=== PATIENT | male | born 1965 | race African-American/Black ===

== ENCOUNTER 2017-01-06 01:33 | Emergency (ER) | payer MEDICAID ==
[~2017-01-06] VITALS: Ht 172.7 cm; Wt 106.6 kg
[~2017-01-06 01:33] MED LIST: AMOXICILLIN 50500 MG PO; AMOXIL500 MG PO; AUGMENTIN 875 M1 TAB PO; AUGMENTIN 875-1 EACH PO; CLARITIN-D1 T12 PO; HCTZ/LISINOPRIL1 TA3 PO; LISINOPRIL 10MG10 MG PO; LODRANE PO; MEDROL 4MG. DOSE4 MG PO; NAPROSYN500 M1 PO; PRILOSEC OTC20 MG PO; PROTONIX 40MG T40 MG PO; VENLAFAXINE HCL50 MG PO; XANAX1 MG PO; ZIAC 5 MG-6.251 TAB PO; ZOFRAN4 MG PO
--- NOTE | 2017-01-06 01:59 | Emergency Room Report ---
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 N Clinical Suspician of Infection? N Mental Status: 1 - Regular (Normal Baseline) Sepsis Risk:Low Sepsis Risk Have you (or family members/close friends) recently traveled outside the [place]? N If Yes, where/when: Have you had exposure to infectious disease within the past month? N TB? Other? Specify: Source patient, RN notes reviewed, family, old records Exam Limitations no limitations Comment upper abd pain with belching and nausea but no diarrhea and no melena over the last few days Cardiac Chest Pain Chest pain indicative of cardiac No Timing/Duration this evening Severity moderate ALLERGIES Coded Allergies: venom-honey bee (BEE VENOM (HONEY BEE)) (Intermediate, SWELLING TO THROAT ) Home Medications Reported Medications Alprazolam (Xanax) 1 MG PO BID OMEPRAZOLE MAGNESIUM (Prilosec OTC) 20 MG PO DAILY LORATADINE/PSEUDOEPHEDRINE (Claritin-D 12 Hour Tablet) 1 T12 PO PRN LISINOPRIL/HYDROCHLOROTHIAZIDE (Lisinopril-Hctz 20-12.5 MG Tab) 1 TAB PO DAILY #30 VENLAFAXINE HCL (Effexor 50MG (GEQ)) 50 MG PO DAILY History Medical History General CAD? No Angina: No RI: No Hypertension? Yes Hyperlipidemia? No CHF? No DVT? No PE? No COPD? No Asthma? No Anemia? No GERD? No Gastric ulcers? No GI Bleed? No Hernia? No Thyroid Problems? No Hypothyroidism? No CVA? No Seizures? No Diabetes? No Renal Insuffiency? No End Stage Renal Disease? No UTI? No Stones? No BPH? No GB Disease: No Nephritic Syndrome? No Asplenia? No Hepatitis? No Sickle Cell Disease? No Arthritis? No Migraines? No Cataracts? No Glaucoma? No MRSA? No HIV? No TB? No Anxiety? Yes Depression? Yes Cancer? No More? No Immunization Hx DT/Tetanus 5-10 Years Ago Surgical Hx Previous Surgery?Y Plastic RIGHT ANKLE Family History Family Hx Diabetes Yes CAD Yes Hypertension Yes Hyperlipidemia Yes Cancer No TB No Social History Smoking Hx Smoker: Never Smoker Tobacco: No Packs/day N/A Alcohol Alcohol: No Drugs none Review of Systems All Other Systems Reviewed and Negative Constitutional denies fever Eyes denies drainage ENT denies: ear discharge, epistaxis, throat pain. Respiratory denies cough, denies shortness of breath, denies wheezing Cardiovascular denies chest pain, denies palpitations, denies syncope Gastrointestinal see HPI, abdominal pain, diarrhea, nausea, vomiting Genitourinary denies: dysuria, frequency, hesitancy, hematuria. Musculoskeletal denies back pain, denies joint pain, denies joint swelling, denies neck pain Skin denies rash Psychiatric/Neurological denies headache, denies seizure Physical Exam Vital Signs Vital Signs Date Time Temp Pulse Resp B/P Pulse O2 O2 Flow FiO2 Ox Delivery Rate 01/06 0143 97.9 75 20 144/98 100 - WBC >12,000 or <4,000 or 10% bands? 2 or more SIRS Criteria Met? B/P:144/98 MAP:113 Creatinine >2.0? UA output<0.5ml/kg/hr for 2 hrs? Platelet count >100,000? Lactate >2.0mmol/1? INR >1.2 or PTT > than 60 sec? Evidence of Organ Dysfunction? Provider documented clinical suspician of infection? N Sepsis Criteria Count: 1 Sepsis Risk: Low Sepsis Risk General Appearance no apparent distress Eye Exam - bilateral eye PERRL, bilateral eye EOMI Ear, Nose, Throat normal ENT inspection Neck supple Respiratory Status No: respiratory distress. Lung Sounds bilateral: lungs clear. 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 No Results/Orders Laboratory Tests 01/06/17 0230: Sodium 136, Potassium 3.4 L, Chloride 102, Carbon Dioxide 27, BUN 10, Creatinine 1.0, Estimated Creat Clear 135, Estimated GFR (MDRD) 79, Glucose 97, Calcium 8.9, Total Bilirubin 0.2, AST 32, ALT 46, Alkaline Phosphatase 61, Creatine Kinase 863 H, CK-MB (CK-2) Rel Index 0.6, CK and CKMB Interp 5.5 H, Troponin I < 0.02, Total Protein 8.4 H, Albumin 3.6, Globulin 4.8 H, Albumin/ Globulin Ratio 0.8 L, Amylase 66, Lipase 146, WBC 7.0, RBC 5.08, Hgb 14.3, Hct 44.0, MCV 86.7, RDW 12.8, Plt Count 353, MPV 8.0, Gran % 51.8, Gran # 3.6, Lymphocytes % 36.0, Monocytes % 7.2, Eosinophils % 4.3, Basophils % 0.7, Lymphocytes # 2.5, Monocytes # 0.5, Eosinophils # 0.3, Basophils # 0.1, PUBS MCHC 32.6, MCH 28.2 01/06/17 0155: Urine Color YELLOW, Urine Appearance CLEAR, Urine pH 6.0, Ur Specific Cheriton 1.020, Urine Protein NEGATIVE, Urine Ketones NEGATIVE, Urine Blood 2+ H, Urine Nitrate NEGATIVE, Urine Bilirubin NEGATIVE, Urine Urobilinogen 0.2, Ur Leukocyte Esterase NEGATIVE, Urine RBC 5-10, Urine WBC OCC, Ur Squamous Epith Cells 3-5, Amorphous Sediment TRACE, Urine Glucose NEGATIVE Current Medication Orders Sig/Peña Start time Last Medication Dose Route Stop Time Status Admin Sodium Chloride 1,000 ML .STK-MED ONE 01/06 226 DC IV Sodium Chloride 10 ML PRN PRN 01/06 145 AC IV 01/07 141 Sodium Chloride 1,000 ML .Q4H 01/06 145 AC IV 01/07 544 Sodium Chloride 10 ML PRN PRN 01/06 145 AC IV 01/07 142 Orders Procedure Date/time Status DIET-NOTHING BY MOUTH 01/[address] ABD & PELVIS W/O CONTRAST 01/[address] SCAN REQ 01/06 142 Active IV SALINE LOCK 01/06 142 Active URINALYSIS/COMPLETE 01/06 142 Complete LIPASE 01/06 142 Complete DIARRHEA PANEL, PCR 01/06 142 Active COMPLETE METABOLIC PANEL 01/06 142 Complete CBC WITH AUTO DIFF 01/06 142 Complete CARDIAC ENZYMES 01/06 142 Complete AMYLASE 01/06 142 Complete XRAY/CT/US XRAY/CT/US CT abdomen, pelvis CT interpretation by discussed w/radiologist Time results known: 0252 CT Results normal/NAD Departure Departure Time of Disposition 315 Disposition DC Home or Self Care(routine) Clinical Impression Primary Impression: Abdominal pain Qualifiers: Abdominal location: unspecified location Qualified Code: R10.9 - Unspecified abdominal pain Condition STABLE Referrals Anthony Manrique MD (Family) Patient Instructions DI for Nausea -- Adult Additional Instructions call pcp for follow up and more testing Discharge Counseling Counseled pt/family regarding diagnosis, test results, medications/RX, follow up needs ED Critical Care Critical Care No at 0316
[2017-01-06 02:08] LABS: URINE BILIRUBIN - DIPSTICK NEGATIVE (NEG); URINE BLOOD 2+ (NEG)
[2017-01-06 02:42] LABS: HEMOGLOBIN 14.3 g/dL (14.1-18.0); LYMPH # 2.5 K/mm3 (0.7-4.5)
[2017-01-06 02:59] LABS: BUN 10 mg/dL (7-18); GFR (ESTIMATED) 79 ML/MIN (>60)
[2017-01-06 03:37] VITALS: BP 144/98
--- NOTE | 2017-01-06 08:55 | RADIOLOGY REPORT PS360 ---
CT ABD PELVIS W/O CONTRAST CLINICAL INDICATION: Upper abdominal pain ABD PAIN ORDERING PHYSICIAN: Pepe Sauceda MD PATIENT AGE: 51 years COMPARISON: None TECHNIQUE: Axial images obtained with sagittal and coronal reformats. PROCEDURE: Oral Contrast: None IV Contrast: None . FINDINGS: There is faint groundglass attenuation in the right upper lobe inferiorly consistent with pneumonia. No effusions. Small hiatal hernia. There is mild diffuse fatty liver infiltration. The gallbladder, spleen, adrenal glands, and pancreas have an unremarkable unenhanced appearance. No hydronephrosis or obstructing renal or ureteral calculus. Scattered small lymph nodes are present in the mesentery's and right lower quadrant which are nonspecific. There is a small umbilical hernia containing fat. No intestinal obstruction or free air is evident. Unremarkable appendix. There is mild diffuse colonic diverticulosis. No evidence of diverticulitis. Again changes are present in the lower thoracic spine. No acute bony anomalies evident. IMPRESSION: 1. No acute intra-abdominal or pelvic pathology. 2. Faint groundglass opacity of the right upper lobe which may represent underlying pneumonia
--- OUTSIDE RECORDS SUMMARY | 2017-01-11 00:49 | External Medical Summary Rpt | CCD ---
Author Author , BONIFACIO Organization BONIFACIO Address Unknown Phone [email or web address] Providers Care Gifted Teacher Name Role Phone BESSON, BESSON Unavailable Unavailable BESSON RICHELLE, BESSON Unavailable Unavailable RICHELLE MALDONADO, MALDONADO Unavailable Unavailable [facility] Unavailable Unavailable [place], [facility] ZEE LIRA, PANKAJ Unavailable Unavailable PANKAJ ALY, Unavailable Unavailable PANKAJ RIVKA MALIK Unavailable Unavailable [facility] Un[facility] Un[facility], [facility], Unavailable Unavailable [facility] Unavailable Unavailable [facility], [facility] Unavailable Unavailable [facility], [facility] Pepe Tineo MD, Unavailable Unavailable Pepe [facility], Unavailable Unavailable [facility], [facility] RENUSCH KASSIDY, RENUSCH Unavailable Unavailable KASSIDY SCHULSTAD CAM, Unavailable Unavailable [facility]UL[facility] SCIFRES ANG, SCIFRES Unavailable Unavailable ANG SCIFRES ANG, SCIFRES Unavailable Unavailable ANG Purpose Continuity of Care Document - 08-16-2012 through 2016 Problems Code Diagnosis DOS Provider Status R509 FEVER 11-07-2016 [facility]PECIF[facility] E785 HYPERLIPIDE 08-16-2016 [facility] LIDIA [facility] UNSPECIFIED [facility] MED G4709 OTHER 08-16-2016 [facility] INSOMNIA [facility] I10 ESSENTIAL 08-16-2016 [facility] PRIMARY [facility] HYPERTENSIO INTERNAL N MED J3089 OTHER 08-16-2016 [facility] ALLERGIC [facility] RHINITIS INTER[facility] MED R3915 URGENCY OF 04-25-2016 [facility] [id number] ADVERSE 04-25-2016 [facility]ECT [facility] SEROTONIN NRI INIT ENC [id number] ADVERS EFF 04-25-2016 [facility] ANTIEMETIC RX INIT ENC R0609 OTHER FORMS 01-25-2016 [facility]SP[facility]A [facility] R1084 GENERALIZED 11-20-2015 [facility] R109 UNSPECIFIED 11-20-2015 [place] [facility] R197 DIARRHEA 11-20-2015 [facility]PEC[facility] J0190 ACUTE 11-13-2015 [facility] SINUSITIS [facility], UNSPECIFIED [facility] R0602 SHORTNESS 09-30-2015 [place] [facility] 4019 UNSPECIFIED 12-23-2014 [facility] ESSENTIAL [facility] HYPERTENSI[facility] INTERNAL N MED 2724 OTHER AND 12-09-2014 [facility] UNSPECIFIED [facility] INTER[facility] HYPERLIPIDE MED LIDIA 57101 OTHER 12-09-2014 [facility] FATIGUE INTER[facility] MED 57828 ESOPHAGEAL 09-05-2014 [facility] REFLUX [facility] 5780 HEMATEMESIS 06-09-2014 [facility] 7871 HEARTBURN 06-09-2014 [facility] 07783 DIARRHEA 06-01-2014 [facility] 94499 ACUTE 05-31-2014 [facility] HEMORRHAGE 78920 OTHER 10-21-2013 SCIFRES ANG CHRONIC ALLERGIC CONJUNCTIVI TIS 300.00 300.00 08-16-2012 [facility] Allergies, Adverse Reactions, Alerts Type Allergy to substance Drug Allergy Adverse Reaction to Substance Substance Reaction Severity INGREDIENT: NO KNOWN Unknown Unknown - NO KNOWN DRUG ALLERGY Bee Venom [id number]/THROAT Severe Clinical Alert Notifications Alert Diabetes: no A1C in the last 6 months Diabetes: no eye exam in the last 365 days Diabetes: no influenza vaccine in the last 365 days Medications Na ND Rx Da Fi Fi Am Da Di Ph RX Ph St me C No te ll ll ou ys ag ar # ys at s nt no ma ic us Or Da si cy ia de te s n re d AL 00 09 10 60 30 00 [place] Ac IA 22 -1 -0 .0 00 L- ti AZ 82 1- 6- 00 04 MA ve OL 03 20 20 53 RT AM 15 17 17 20 1 0 56 PH AR MG MA CY TA BL #5 ET 91 LO 00 09 09 30 30 00 [place] Ac RA 90 -0 -2 .0 00 L- ti TA 45 2- 9- 00 08 MA ve DI 83 20 20 83 RT NE 34 17 17 95 -D 8 44 PH AR 24 MA HR CY TA #5 BL 91 ET LO 00 09 09 30 30 00 [place] Ac RA 78 -0 -2 .0 00 L- ti TA 15 2- 9- 00 08 MA ve DI 07 20 20 83 RT NE 70 17 17 95 1 43 PH 10 AR MA MG CY TA #5 BL 91 ET OM 45 09 30 30 00 [place] Ac EP 80 -0 -2 .0 00 L- ti RA 20 2- 9- 08 MA ve ZO 88 20 20 84 RT LE 83 17 [address] AR MA 20 CY MG #5 91 TA BL ET LI 68 08 12 28 30 00 [place] Ac SI 64 -2 -2 .0 00 L- ti NO 50 7- 2- 00 07 MA ve IA 55 20 20 48 RT [place] 75 17 17 90 -H [address] AR Z MA 20 CY -1 2. #5 5 91 MG TA B AL 00 11 07 59 30 00 [place] Ac IA 22 -1 -0 .0 00 L- ti AZ 82 1- 8- 00 04 MA ve OL 03 20 20 53 RT AM 15 17 17 15 1 0 84 PH AR MG MA CY TA BL #5 ET 91 LI 68 07 11 27 30 [place] Ac SI 64 -2 -2 .0 00 L- ti NO 50 7- 5- 00 07 MA ve IA 55 20 20 48 RT [place] 75 17 17 90 -H [address] AR Z MA 20 CY -1 2. #5 5 91 MG TA B OM 45 10 05 29 30 00 [place] Ac EP 80 -3 -2 .0 00 L- ti RA 20 0- 5- 00 08 MA ve ZO 88 20 20 84 RT LE 83 17 [address] AR MA 20 CY MG #5 91 TA BL ET LO 00 10 05 30 30 [place] Ac RA 78 -2 -1 .0 00 L- ti TA 15 2- 8- 00 08 MA ve DI 07 20 20 83 RT NE 70 17 17 95 1 43 PH 10 AR MA MG CY TA #5 BL 91 ET LO 00 08 30 30 00 [place] Ac RA 90 -1 -1 .0 00 L- ti TA 45 9- 1- 00 08 MA ve DI 83 20 20 83 RT NE 34 17 17 95 -D 8 44 PH AR 24 MA HR CY TA #5 BL 91 ET AL 00 07 08 60 30 00 [place] Ac IA 22 -1 -0 .0 00 L- ti AZ 82 1- 4- 00 04 MA ve OL 03 20 20 53 RT AM 15 17 17 09 1 0 92 PH AR MG MA CY TA BL #5 ET 91 LI 68 06 30 30 00 [place] Ac SI 64 -2 -2 .0 00 L- ti NO 50 6- 1- 00 07 MA ve IA 55 20 20 48 RT IL 75 17 17 90 -H [address] AR Z MA 20 CY -1 2. #5 5 91 MG TA B AL 00 06 07 60 30 00 [place] Ac IA 22 -0 -0 .0 00 L- ti AZ 82 8- 7- 00 04 MA ve OL 03 20 20 53 RT AM 15 17 17 05 1 0 86 PH AR MG MA CY TA BL #5 ET 91 ES 68 05 30 30 00 [place] Ac CI 64 -2 -2 .0 00 L- ti TA 50 5- 3- 00 07 MA ve LO 51 20 20 49 RT IA 95 17 17 00 AM 4 44 PH AR 10 MA CY MG #5 TA 91 BL ET LI 54 05 30 30 00 [place] Ac SI 45 -2 -1 .0 00 L- ti NO 80 2- 6- 00 07 MA ve IA 99 20 20 48 RT IL 21 17 17 90 -H [address] AR Z MA 20 CY -1 2. #5 5 91 MG TA B LO 00 05 06 30 30 00 [place] Ac RA 90 -2 -1 .0 00 L- ti TA 45 1- 6- 00 08 MA ve DI 83 20 20 83 RT NE 34 17 17 95 -D 8 44 PH AR 24 MA HR CY TA #5 BL 91 ET LO 00 05 06 30 30 00 [place] Ac RA 78 -2 -1 .0 00 L- ti TA 15 1- 6- 00 08 MA ve DI 07 20 20 83 RT NE 70 17 17 95 1 43 PH 10 AR MA MG CY TA #5 BL 91 ET AL 00 05 06 60 30 00 [place] Ac IA 22 -0 -0 .0 00 L- ti AZ 82 9- 2- 00 04 MA ve OL 03 20 20 53 RT AM 15 17 17 02 1 0 91 PH AR MG MA CY TA BL #5 ET 91 LI 54 04 30 30 00 [place] Ac SI 45 -2 -2 .0 00 L- ti NO 80 9- 6- 00 07 MA ve IA 99 20 20 45 RT IL 21 17 17 84 -H [address] AR Z MA 20 CY -1 2. #5 5 91 MG TA B LO 00 04 30 30 00 [place] Ac RA 78 -2 -2 .0 00 L- ti TA 15 8- 6- 00 08 MA ve DI 07 20 20 83 RT NE 70 17 17 88 1 93 PH 10 AR MA MG CY TA #5 BL 91 ET FL 60 04 05 16 30 00 [place] Ac UT 43 -2 -1 .0 00 L- ti IC 20 4- 9- 00 07 MA ve 26 20 20 48 RT ON 41 17 17 39 E 5 57 PH IA AR OP MA CY 50 #5 MC 91 G SP RA Y AL 00 04 05 60 30 00 [place] Ac IA 22 -1 -0 .0 00 L- ti AZ 82 0- 5- 00 04 MA ve OL 03 20 20 52 RT AM 15 17 17 99 1 0 46 PH AR MG MA CY TA BL #5 ET 91 LO 00 04 30 30 00 [place] Ac RA 90 -1 -0 .0 00 L- ti TA 45 1- 5- 00 08 MA ve DI 83 20 20 83 RT NE 34 17 17 53 -D 8 31 PH AR 24 MA HR CY TA #5 BL 91 ET ES 68 04 07 28 30 00 [place] Ac CI 64 -0 -2 .0 00 L- ti TA 50 4- 8- 00 07 MA ve LO 51 20 20 46 RT IA 95 17 17 74 AM 4 00 PH AR 10 MA CY MG #5 TA 91 BL ET LO 00 04 30 30 00 [place] Ac RA 78 -0 -2 .0 00 L- ti TA 15 5- 8- 00 08 MA ve DI 07 20 20 83 RT NE 70 17 17 88 1 93 PH 10 AR MA MG CY TA #5 BL 91 ET LI 54 03 30 30 00 [place] Ac SI 45 -2 -2 .0 00 L- ti NO 80 8- 1- 00 07 MA ve IA 99 20 20 45 RT IL 21 17 17 84 -H [address] AR Z MA 20 CY -1 2. #5 5 91 MG TA B AL 00 03 60 30 00 [place] Ac IA 22 -1 -0 .0 00 L- ti AZ 82 0- 7- 00 04 MA ve OL 03 20 20 52 RT AM 15 17 17 96 1 0 05 PH AR MG MA CY TA BL #5 ET 91 LO 00 03 04 30 30 00 [place] Ac RA 90 -0 -0 .0 00 L- ti TA 45 9- 7- 00 08 MA ve DI 83 20 20 83 RT NE 34 17 17 53 -D 8 31 PH AR 24 MA HR CY TA #5 BL 91 ET LI 54 02 03 30 30 00 [place] Ac SI 45 -2 -2 .0 00 L- ti NO 80 7- 4- 00 07 MA ve IA 99 20 20 45 RT IL 21 17 17 84 -H [address] AR Z MA 20 CY -1 2. #5 5 91 MG TA B ES 68 02 03 30 30 00 [place] Ac CI 64 -2 -2 .0 00 L- ti TA 50 4- 4- 00 07 MA ve LO 51 20 20 46 RT IA 95 17 17 74 AM 4 00 PH AR 10 MA CY MG #5 TA 91 BL ET AL 00 02 03 60 30 00 [place] Ac IA 22 -1 -1 .0 00 L- ti AZ 82 0- 0- 00 04 MA ve OL 03 20 20 52 RT AM 15 17 17 93 1 0 23 PH AR MG MA CY TA BL #5 ET 91 LO 00 02 03 30 30 00 [place] Ac RA 90 -0 -0 .0 00 L- ti TA 45 7- 3- 00 08 MA ve DI 83 20 20 83 RT NE 34 17 17 53 -D 8 31 PH AR 24 MA HR CY TA #5 BL 91 ET LI 54 01 30 30 00 [place] Ac SI 45 -3 -2 .0 00 L- ti NO 80 0- 4- 00 07 MA ve IA 99 20 20 45 RT IL 21 17 17 84 -H [address] AR Z MA 20 CY -1 2. #5 5 91 MG TA B ES 65 01 30 30 00 [place] Ac CI 86 -2 -2 .0 00 L- ti TA 20 7- 4- 00 07 MA ve LO 37 20 20 46 RT IA 40 17 17 74 AM 1 00 PH AR 10 MA CY MG #5 TA 91 BL ET VE 00 02 30 30 00 [place] Ac NL 09 -1 -1 .0 00 L- ti AF 37 6- 0- 00 07 MA ve AX 38 20 20 46 RT IN 55 17 17 48 E 6 64 PH HC AR L MA ER CY 75 #5 91 MG CA P FL 60 01 02 16 30 00 [place] Ac UT 43 -1 -1 .0 00 L- ti IC 20 6- 0- 00 07 MA ve 26 20 20 46 RT ON 41 17 17 48 E 5 77 PH IA AR OP MA CY 50 #5 MC 91 G SP RA Y AM 00 01 02 20 10 00 [place] Ac OX 14 -0 -0 .0 00 L- ti IC 39 7- 3- 00 07 MA ve IL 95 20 20 46 RT LI 10 17 17 32 N 1 16 PH 87 AR 5 MA MG CY TA #5 BL 91 ET ME 68 01 30 30 00 [place] Ac TF 38 -1 -0 .0 00 L- ti OR 20 1- 3- 00 07 MA ve MO 75 20 20 46 RT N 81 17 17 39 HC 0 21 PH L AR 50 MA 0 CY MG #5 TA 91 BL ET AL 00 01 02 60 30 00 [place] Ac IA 22 -1 -0 .0 00 L- ti AZ 82 1- 3- 00 04 MA ve OL 03 20 20 52 RT AM 15 17 17 90 1 0 00 PH AR MG MA CY TA BL #5 ET 91 LI 54 12 30 30 00 [place] Ac SI 45 -2 -2 .0 00 L- ti NO 80 4- 7- 00 07 MA ve IA 99 20 20 45 RT IL 21 16 17 84 -H [address] AR Z MA 20 CY -1 2. #5 5 91 MG TA B LO 00 12 04 29 30 00 [place] Ac RA 90 -2 -2 .0 00 L- ti TA 45 7- 7- 00 08 MA ve DI 83 20 20 83 RT NE 34 16 17 53 -D 8 31 PH AR 24 MA HR CY TA #5 BL 91 ET AL 00 12 60 30 00 [place] Ac IA 22 -1 -1 .0 00 L- ti AZ 82 4- 3- 00 04 MA ve OL 03 20 20 52 RT AM 15 16 17 87 1 0 47 PH AR MG MA CY TA BL #5 ET 91 Vital Signs 08-16-2012 03:18 Name Value Interpretat Reference Comment ion Range BP 72 mm[Hg] Diastolic BP Systolic 112 mm[Hg] Heart 70 /min Rate/Pulse O2% 99 % Respiratory 20 /min Rate Procedures Procedure DOS Code Location Performer Comment IAADIADO [address] [facility] [address] [address] COMBINED COMBINED THYROID 7 PHYSICIAN PHYSICIAN [place]IMULATI [place] NG HORMONE TSH COMPREHEN 49559 COMBINED COMBINED SIVE 7 PHYSICIAN PHYSICIAN METABOLIC [place] PANEL LIPID 92582 COMBINED COMBINED PANEL 7 PHYSICIAN PHYSIC[place] BLOOD 52513 COMBINED COMBINED COUNT 7 PHYSICIAN PHYSICIAN COMPLETE S LA S LA AUTO&AUTO DIFRNTL WBC URNLS DIP 24330 [facility] STICK/TAB INC INC LET REAGENT AUTO MICROSCOP Y LIPID 91945 COMBINED COMBINED PANEL 7 PHYSICIAN PHYSICIAN S [place] S [place] COMPREHEN 93467 COMBINED COMBINED SIVE 7 PHYSICIAN PHYSICIAN METABOLIC S LA S LA PANEL IADNA-DNA 13156 [facility] /RNA GI 6 [facility] PTHGN INC INC MULTIPLEX PROBE TQ 03-24 RADEX ABD 36419 [facility] COMPL 6 MEDICAL AQT ABD IMAGING W/S/E/D ASS VIEWS 1 VIEW CH RADIOLOGI 63046 [facility] C EXAM 6 MEDICAL CHEST 2 IMAGING VIEWS ASS FRONTAL&L ATERAL INF AGENT 12457 [facility] DET 5 [facility] NUCLEIC INC INC ACID CLOSTRIDI UM AMP PROBE IADNA NOS 30660 [facility] 5 [facility] AMPLIFIED INC INC PROBE TQ EACH ORGANISM COMPREHEN 60595 [facility] SIVE 5 [facility] METABOLIC INC INC PANEL THROMBOPL 47579 [facility] ASTIN 5 [facility] TIME INC INC PARTIAL PLASMA/WH OLE BLOOD THER 66421 [facility] PROPH/DX 5 [facility] NJX IV INC INC PUSH SINGLE/1S T SBST/DRUG PROTHROMB 00316 [facility] IN TIME 5 [facility] INC INC BLOOD 27700 [facility] OCCULT 5 [facility] PEROXIDAS INC INC E ACTV QUAL FECES 1-3 SPEC BLOOD 10018 [facility] COUNT 5 [facility] COMPLETE INC INC AUTO&AUTO DIFRNTL WBC Encounters Encounter Start End Date Code Location Performer Type Date OFFICE 69757 [facility] T VISIT INTERNAL 15 MED MINUTES OFFICE 61638 [facility] 7 7 [facility] T VISIT INTERNAL 25 MED MINUTES EMERGENCY 64654 [facility] 7 7 [facility] DEPARTMEN INC T VISIT LIMITED/M [facility]OR [facility]OB [facility] - 7 7 [facility] OUTPATIEN INC T EMERGENCY 76185 [facility] 7 7 PHYSICIAN BAUDILIOMEN S, [facility] T VISIT MODERATE SEVERITY EMERGENCY 49536 [facility] DEPT 6 6 PHYSICIAN KASSIDY VISIT [facility] HIGH SEVERITY& THREAT [facility] - 6 6 [facility] OUTPATIEN INC T EMERGENCY 77151 [facility] 6 6 [facility]IC[facility] MODERATE SEVERITY OFFICE 10489 [facility] 5 5 [facility] RICHELLE T VISIT INTERNAL 15 MED MINUTES OFFICE 32740 [facility] 5 5 [facility] RICHELLE T VISIT INTERNAL 25 MED MINUTES OFFICE 02348 [facility] 5 5 [facility] RICHELLE T VISIT INTERNAL 15 MED MINUTES OFFICE 70117 [facility] OUTPATIEN 5 5 PHYSICIAN CAM T [place] 45 S GROUP MINUTES OFFICE 76995 [facility] 5 5 [facility] RICHELLE T VISIT INTERNAL 15 MED MINUTES [facility] - 5 5 [facility] OUTPATIEN INC T EMERGENCY 60368 [facility] 5 5 [facility] DEPARTMEN INC T VISIT MODERATE SEVERITY EMERGENCY 31152 [facility] 5 5 [facility] DEPARTMEN INC T VISIT HIGH/URGE NT SEVERITY [facility] - 5 5 [facility] OUTPATIEN INC T OFFICE 76369 [facility] 5 5 VAL[facility] ALY T VISIT INTERNAL 15 MED MINUTES OFFICE 35960 [facility] 4 4 ANG ANG T VISIT 10 MINUTES Emergency DAMIAN Tineo MD (ER) 3 02:55 3 03:19 [facility]
--- OUTSIDE RECORDS SUMMARY | 2017-01-11 00:49 | External Medical Summary Rpt | CCD ---
Author Author , BONIFACIO Organization BONIFACIO Address Unknown Phone [email or web address] Care Team Providers Care Experimental Display Builder Name Role Phone BESSON, BESSON Unavailable Unavailable BESSON RICHELLE, BESSON Unavailable Unavailable RICHELLE MALDONADO, MALDONADO Unavailable Unavailable [facility] Unavailable Unavailable [place], [facility] ZEE LIRA, PANKAJ Unavailable Unavailable PANKAJ ALY, Unavailable Unavailable PANKAJ RIVKA MALIK Unavailable Unavailable [facility] Unavailable Unavailable INC, [facility], Unavailable Unavailable [facility] Unavailable Unavailable IMAGING [facility], [facility] Unavailable Unavailable [facility], [facility] Pepe Tineo MD, Unavailable Unavailable [facility], Unavailable Unavailable PLLC, [facility] RENUSCH KASSIDY, RENUSCH Unavailable Unavailable KASSIDY SCHULSTAD CAM, Unavailable Unavailable [facility] SCIFRES ANG, SCIFRES Unavailable Unavailable ANG SCIFRES ANG, SCIFRES Unavailable Unavailable ANG Purpose Continuity of Care Document - 08-16-2012 through 2016 Problems Code Diagnosis DOS Provider Status R509 FEVER 11-07-2016 [facility]PECIF[facility] E785 HYPERLIPIDE 08-16-2016 [facility] LIDIA [facility] UNSPECIFIED INTERNAL MED G4709 OTHER 08-16-2016 [facility] INSOMNIA [facility] I10 ESSENTIAL 08-16-2016 [facility] HYPERTENSIO INTERNAL N MED J3089 OTHER 08-16-2016 [facility] ALLERGIC [facility] RHINITIS INTERNAL MED R3915 URGENCY OF 04-25-2016 [facility] [id number] ADVERSE 04-25-2016 [facility] SEROTONIN NRI INIT ENC [id number] ADVERS EFF 04-25-2016 [facility] ANTIEMETIC RX INIT ENC R0609 OTHER FORMS 01-25-2016 [facility] R1084 GENERALIZED 11-20-2015 [facility] PAIN [facility] R109 UNSPECIFIED 11-20-2015 [place] [facility] R197 DIARRHEA 11-20-2015 [facility] J0190 ACUTE 11-13-2015 [facility] SINUSITIS [facility]ICIANS, UNSPECIFIED [facility] R0602 SHORTNESS 09-30-2015 [place] [facility] 4019 UNSPECIFIED 12-23-2014 [facility]ENTIAL [facility] HYPERTENSIO INTERNAL N MED 2724 OTHER AND 12-09-2014 [facility] UNSPECIFIED [facility] INTERNAL HYPERLIPIDE MED LIDIA 43924 OTHER 12-09-2014 [facility] FATIGUE INTERNAL MED 38593 ESOPHAGEAL 09-05-2014 [facility] REFLUX [facility] MED 5780 HEMATEMESIS 06-09-2014 [facility] 7871 HEARTBURN 06-09-2014 [facility] 58935 DIARRHEA 06-01-2014 [facility] 22785 ACUTE 05-31-2014 [facility] WITH INC HEMORRHAGE 94618 OTHER 10-21-2013 SCIFRES ANG CHRONIC ALLERGIC CONJUNCTIVI TIS 300.00 300.00 08-16-2012 [facility] Allergies, Adverse Reactions, Alerts Type Allergy to substance Drug Allergy Adverse Reaction to Substance Substance Reaction Severity INGREDIENT: NO KNOWN Unknown Unknown - NO KNOWN DRUG ALLERGY Bee Venom [id number]/THROAT Severe Clinical Alert Notifications Alert Diabetes: no [...] 09 10 60 30 00 [place] Ac NM 22 -1 -0 .0 00 L- ti [...] ET OM 45 09 30 30 00 UT Ac EP 80 -0 -2 .0 00 L- ti RA 20 2- 9- 08 MA ve ZO 88 20 20 84 RT LE 83 17 17 [address] AR MA 20 CY MG #5 91 TA BL ET LI 68 08 12 28 30 00 UT Ac SI 64 -2 -2 .0 00 L- ti NO 50 7- 2- 00 07 MA ve NM 55 20 20 48 RT IL 75 17 17 90 -H [address] AR Z MA 20 CY -1 2. #5 5 91 MG TA B AL 00 11 07 59 30 00 UT Ac NM 22 -1 -0 .0 00 L- ti AZ 82 1- 8- 00 04 MA ve OL 03 20 20 53 RT AM 15 17 17 15 1 0 84 PH AR MG MA CY TA BL #5 ET 91 LI 68 07 11 27 30 UT Ac SI 64 -2 -2 .0 00 L- ti NO 50 7- 5- 00 07 MA ve NM 55 20 20 48 RT IL 75 17 17 90 -H [address] AR Z MA 20 CY -1 2. #5 5 91 MG TA B OM 45 10 05 29 30 00 UT Ac EP 80 -3 -2 .0 00 L- ti RA 20 0- 5- 00 08 MA ve ZO 88 20 20 84 RT LE 83 17 [address] AR MA 20 CY MG #5 91 TA BL ET LO 00 10 05 30 30 UT Ac RA 78 -2 -1 .0 00 L- ti TA 15 2- 8- 00 08 MA ve DI 07 20 20 83 RT NE 70 17 17 95 1 43 PH 10 AR MA MG CY TA #5 BL 91 ET LO 00 08 30 30 00 UT Ac RA 90 -1 -1 .0 00 L- ti TA 45 9- 1- 00 08 MA ve DI 83 20 20 83 RT NE 34 17 17 95 -D 8 44 PH AR 24 MA HR CY TA #5 BL 91 ET AL 00 07 08 60 30 00 UT Ac NM 22 -1 -0 .0 00 L- ti AZ 82 1- 4- 00 04 MA ve OL 03 20 20 53 RT AM 15 17 17 09 1 0 92 PH AR MG MA CY TA BL #5 ET 91 LI 68 06 30 30 00 WA Ac SI 64 -2 -2 .0 00 L- ti NO 50 6- 1- 00 07 MA ve NM 55 20 20 48 RT IL 75 17 17 90 -H [address] AR Z MA 20 CY -1 2. #5 5 91 MG TA B AL 00 06 07 60 30 00 [place] Ac NM 22 -0 -0 .0 00 L- ti [...] ve LO 51 20 20 49 RT NM 95 17 17 00 AM 4 44 PH AR 10 MA CY MG #5 TA 91 BL ET LI 54 05 30 30 00 WA Ac SI 45 -2 -1 .0 00 L- ti NO 80 2- 6- 00 07 MA ve NM 99 20 20 48 RT IL 21 [...] 05 06 60 30 00 WA Ac NM 22 -0 -0 .0 00 L- ti AZ 82 9- 2- 00 04 MA ve OL 03 20 20 53 RT AM 15 17 17 02 1 0 91 PH AR MG MA CY TA BL #5 ET 91 LI 54 04 30 30 00 WA Ac SI 45 -2 -2 .0 00 L- ti NO 80 9- 6- 00 07 MA ve NM 99 20 20 45 RT IL 21 [...] FL 60 04 05 16 30 00 UT Ac UT 43 -2 -1 .0 00 L- ti IC 20 4- 9- 00 07 MA ve 26 20 20 48 RT ON 41 17 17 39 E 5 57 PH NM AR OP MA CY 50 #5 MC 91 G SP RA Y AL 00 04 05 60 30 00 UT Ac NM 22 -1 -0 .0 00 L- ti AZ 82 0- 5- 00 04 MA ve OL 03 20 20 52 RT AM 15 17 17 99 1 0 46 PH AR MG MA CY TA BL #5 ET 91 LO 00 04 30 30 00 UT Ac RA 90 -1 -0 .0 00 L- ti TA 45 1- 5- 00 08 MA ve DI 83 20 20 83 RT NE 34 17 17 53 -D 8 31 PH AR 24 MA HR CY TA #5 BL 91 ET ES 68 04 07 28 30 00 UT Ac CI 64 -0 -2 .0 00 L- ti TA 50 4- 8- 00 07 MA ve LO 51 20 20 46 RT NM 95 17 17 74 AM 4 00 PH AR 10 MA CY MG #5 TA 91 BL ET LO 00 04 30 30 00 UT Ac RA 78 -0 -2 .0 00 L- ti TA 15 5- 8- 00 08 MA ve DI 07 20 20 83 RT NE 70 17 17 88 1 93 PH 10 AR MA MG CY TA #5 BL 91 ET LI 54 03 30 30 00 UT Ac SI 45 -2 -2 .0 00 L- ti NO 80 8- 1- 00 07 MA ve NM 99 20 20 45 RT IL 21 17 17 84 -H [address] AR Z MA 20 CY -1 2. #5 5 91 MG TA B AL 00 03 60 30 00 UT Ac NM 22 -1 -0 .0 00 L- ti AZ 82 0- 7- 00 04 MA ve OL 03 20 20 52 RT AM 15 17 17 96 1 0 05 PH AR MG MA CY TA BL #5 ET 91 LO 00 03 04 30 30 00 UT Ac RA 90 -0 -0 .0 00 [...] 80 7- 4- 00 07 MA ve NM 99 20 20 45 RT IL 21 17 17 84 -H [address] AR Z MA 20 CY -1 2. #5 5 91 MG TA B ES 68 02 03 30 30 00 [place] Ac CI 64 -2 -2 .0 00 L- ti TA 50 4- 4- 00 07 MA ve LO 51 20 20 46 RT NM 95 17 17 74 AM 4 00 PH AR 10 MA CY MG #5 TA 91 BL ET AL 00 02 03 60 30 00 WA Ac NM 22 -1 -1 .0 00 L- ti [...] ET LI 54 01 30 30 00 UT Ac SI 45 -3 -2 .0 00 L- ti NO 80 0- 4- 00 07 MA ve NM 99 20 20 45 RT IL 21 17 17 84 -H [address] AR Z MA 20 CY -1 2. #5 5 91 MG TA B ES 65 01 30 30 00 UT Ac CI 86 -2 -2 .0 00 L- ti TA 20 7- 4- 00 07 MA ve LO 37 20 20 46 RT NM 40 17 17 74 AM 1 00 [...] 17 17 48 E 5 77 PH NM AR OP MA CY 50 #5 MC [...] ET ME 68 01 30 30 00 UT Ac TF 38 -1 -0 .0 00 L- ti OR 20 1- 3- 00 07 MA ve ID 75 20 20 46 RT N 81 17 17 39 HC 0 21 PH L AR 50 MA 0 CY MG #5 TA 91 BL ET AL 00 01 02 60 30 00 WA Ac NM 22 -1 -0 .0 00 L- ti AZ 82 1- 3- 00 04 MA ve OL 03 20 20 52 RT AM 15 17 17 90 1 0 00 PH AR MG MA CY TA BL #5 ET 91 LI 54 12 30 30 00 UT Ac SI 45 -2 -2 .0 00 L- ti NO 80 4- 7- 00 07 MA ve NM 99 20 20 45 RT IL 21 16 17 84 -H [address] AR Z MA 20 CY -1 2. #5 5 91 MG TA B LO 00 12 04 29 30 00 UT Ac RA 90 -2 -2 .0 00 L- ti TA 45 7- 7- 00 08 MA ve DI 83 20 20 83 RT NE 34 16 17 53 -D 8 31 PH AR 24 MA HR CY TA #5 BL 91 ET AL 00 12 60 30 00 UT Ac NM 22 -1 -1 .0 00 L- ti [...] Procedure DOS Code Location Performer Comment IAADIADO [address] [facility] [address] [place] [address] COMBINED COMBINED THYROID 7 PHYSICIAN PHYSICIAN STIMULATI S [place] NG HORMONE TSH COMPREHEN 16992 COMBINED COMBINED SIVE 7 PHYSICIAN PHYSICIAN METABOLIC S [place] S [place] PANEL LIPID 46453 COMBINED COMBINED PANEL 7 PHYSICIAN PHYSIC[place] BLOOD 01173 COMBINED COMBINED COUNT 7 PHYSICIAN PHYSICIAN COMPLETE S LA S LA AUTO&AUTO DIFRNTL WBC URNLS DIP 16976 [facility] STICK/TAB INC INC LET REAGENT AUTO MICROSCOP Y LIPID 00213 COMBINED COMBINED PANEL 7 PHYSICIAN PHYSICIAN S LA S LA COMPREHEN 33713 COMBINED COMBINED SIVE 7 PHYSICIAN PHYSICIAN METABOLIC S LA S LA PANEL IADNA-DNA 48742 [facility] /RNA GI 6 [facility] PTHGN INC INC MULTIPLEX PROBE TQ 03-24 RADEX ABD 90244 [facility] COMPL 6 MEDICAL AQT ABD IMAGING W/S/E/D ASS VIEWS 1 VIEW CH RADIOLOGI 70188 [facility] C EXAM 6 MEDICAL CHEST 2 IMAGING VIEWS ASS FRONTAL&L ATERAL INF AGENT 55972 [facility] DET 5 [facility] NUCLEIC INC INC ACID CLOSTRIDI UM AMP PROBE IADNA NOS 57081 [facility] 5 [facility] AMPLIFIED INC INC PROBE TQ EACH ORGANISM COMPREHEN 82624 [facility] SIVE 5 [facility] METABOLIC INC INC PANEL THROMBOPL 10536 [facility] ASTIN 5 [facility] TIME INC INC PARTIAL PLASMA/WH OLE BLOOD THER 12642 [facility] PROPH/DX 5 [facility] NJX IV INC INC PUSH SINGLE/1S T SBST/DRUG PROTHROMB 36287 [facility] IN TIME 5 [facility] INC INC BLOOD 39275 [facility] OCCULT 5 [facility] PEROXIDAS INC INC E ACTV QUAL FECES 1-3 SPEC BLOOD 93055 [facility] COUNT 5 [facility] COMPLETE INC INC AUTO&AUTO DIFRNTL WBC Encounters Encounter Start End Date Code Location Performer Type Date OFFICE 55702 [facility] 7 [facility] T VISIT INTERNAL 15 MED MINUTES OFFICE 41962 [facility] 7 7 [facility] T VISIT INTERNAL 25 MED MINUTES EMERGENCY 89603 [facility] 7 7 [facility] DEPARTMEN INC T VISIT LIMITED/M INOR PROB [facility] - 7 7 [facility] OUTPATIEN INC T EMERGENCY 73868 [facility] 7 7 PHYSICIAN BAUDILIOMEN S, [facility] T VISIT MODERATE SEVERITY EMERGENCY 01191 [facility] DEPT 6 6 PHYSICIAN KASSIDY VISIT [facility] HIGH SEVERITY& THREAT [facility] - 6 6 [facility] OUTPATIEN INC T EMERGENCY 79641 [facility] 6 6 PHYSICIAN [facility]ID[facility] MODERATE SEVERITY OFFICE 75212 [facility] 5 5 [facility] RICHELLE T VISIT INTERNAL 15 MED MINUTES OFFICE 11770 [facility] 5 5 [facility] RICHELLE T VISIT INTERNAL 25 MED MINUTES OFFICE 30722 [facility] 5 5 [facility] RICHELLE T VISIT INTERNAL 15 MED MINUTES OFFICE 82338 [facility] OUTPATIEN 5 5 PHYSICIAN CAM T NEW 45 S GROUP MINUTES OFFICE 97033 [facility] 5 5 [facility] RICHELLE T VISIT INTERNAL 15 MED MINUTES [facility]OSPITAL [facility] 5 5 [facility] OUTPATIEN INC T EMERGENCY 96452 [facility] 5 5 [facility] DEPARTMEN INC T VISIT MODERATE SEVERITY EMERGENCY 86409 [facility] 5 5 [facility] DEPARTMEN INC T VISIT HIGH/URGE NT SEVERITY [facility]OSPITAL [facility] - 5 5 [facility] OUTPATIEN INC T OFFICE 63136 [facility] 5 5 [facility] ALY T VISIT INTERNAL 15 MED MINUTES OFFICE 73978 [facility] OUT[facility] 4 4 ANG ANG T VISIT 10 MINUTES Emergency DAMIAN Tineo MD (ER) 3 02:55 3 03:19 [facility]
--- OUTSIDE RECORDS SUMMARY | 2017-01-11 00:51 | External Medical Summary Rpt | CCD ---
Author Author , BONIFACIO Thakur BONIFACIO Address Unknown Phone [email or web address] Care Team Providers Care Lead Miner Blasting Name Role Phone BESSON, BESSON Unavailable Unavailable BESSON RICHELLE, BESSON Unavailable Unavailable RICHELLE MALDONADO, MALDONADO Unavailable Unavailable [facility] Unavailable Unavailable [place], [facility] [place] PANKAJ, PANKAJ Unavailable Unavailable PANKAJ ALY, Unavailable Unavailable PANKAJ ALY RIVKA, RIVKA Unavailable Unavailable [facility] Unavailable Unavailable INC, [facility], Unavailable Unavailable [facility] Unavailable Unavailable IM[facility]ING [facility], [facility] Unavailable Unavailable INTERNAL MED, [facility] MED [facility], Unavailable Unavailable PLLC, [facility] RENUSCH KASSIDY, RENUSCH Unavailable Unavailable KASSIDY SCHULSTAD CAM, Unavailable Unavailable [facility] SCIFRES ANG, SCIFRES Unavailable Unavailable ANG SCIFRES ANG, SCIFRES Unavailable Unavailable ANG Purpose Continuity of Care Document - 10-21-2013 through 2016 Problems Code Diagnosis DOS Provider Status R509 FEVER 11-07-2016 [facility] UNSPECIFIED [facility] MED E785 HYPERLIPIDE 08-16-2016 [facility] LIDIA [facility] UNSPECIFIED INTERNAL MED G4709 OTHER 08-16-2016 [facility] INSOMNIA [facility] I10 ESSENTIAL 08-16-2016 [facility] HYPERTENSIO INTERNAL N MED J3089 OTHER 08-16-2016 [facility] ALLERGIC [facility] RHINITIS INTERNAL MED R3915 URGENCY OF 04-25-2016 [facility] [id number] ADVERSE 04-25-2016 [facility] SEROTONIN NRI INIT ENC [id number] ADVERS EFF 04-25-2016 [facility] ANTIEMETIC RX INIT ENC R0609 OTHER FORMS 01-25-2016 [facility] R1084 GENERALIZED 11-20-2015 [facility]IN INC R109 UNSPECIFIED 11-20-2015 [place] [facility] R197 DIARRHEA 11-20-2015 [facility] J0190 ACUTE 11-13-2015 [facility] SINUSITIS PHYSICIANS, UNSPECIFIED [facility] R0602 SHORTNESS 09-30-2015 [facility] MEDICAL [facility] 4019 UNSPECIFIED 12-23-2014 [facility] HYPERTENSIO INTERNAL N MED 2724 OTHER AND 12-09-2014 [facility] UNSPECIFIED [facility] INTERNAL HYPERLIPIDE MED LIDIA 08565 OTHER 12-09-2014 [facility] FATIGUE INTERNAL MED 40050 ESOPHAGEAL 09-05-2014 [facility] REFLUX [facility] INTERNAL MED 5780 HEMATEMESIS 06-09-2014 [facility] 7871 HEARTBURN 06-09-2014 [facility] 89799 DIARRHEA 06-01-2014 [facility] INTERNAL MED 53082 ACUTE 05-31-2014 [facility] WITH INC HEMORRHAGE 55750 OTHER 10-21-2013 [facility] ANG CHRONIC ALLERGIC CONJUNCTIVI TIS Medications Na ND Rx Da Fi Fi Am Da Di Ph RX Ph St me C No te ll ll ou ys ag ar # ys at rm s nt no ma ic us Or Da si cy ia de te s n re d AL 00 09 10 60 30 00 [place] Ac NC 22 -1 -0 .0 00 L- ti AZ 82 1- 6- 00 04 MA ve OL 03 20 20 53 RT AM 15 17 17 20 1 0 56 PH AR MG MA CY TA BL #5 ET 91 OM 45 09 12 28 30 00 [place] Ac EP 80 -0 -2 .0 00 L- ti RA 20 2- 9- 00 08 MA ve ZO 88 20 20 84 RT LE 83 17 17 [address] AR MA 20 CY MG #5 91 TA BL ET LO 00 12 07 30 30 00 [place] Ac RA 78 -0 -2 .0 00 L- ti TA 15 2- 9- 00 08 MA ve DI 07 20 20 83 RT NE 70 17 17 95 1 43 PH 10 AR MA MG CY TA #5 BL 91 ET LO 00 09 30 30 00 [place] Ac RA 90 -0 -2 .0 00 L- ti TA 45 2- 9- 00 08 MA ve DI 83 20 20 83 RT NE 34 17 17 95 -D 8 44 PH AR 24 MA HR CY TA #5 BL 91 ET LI 68 08 30 30 00 [place] Ac SI 64 -2 -2 .0 00 L- ti NO 50 7- 2- 00 07 MA ve NC 55 20 20 48 RT IL 75 17 17 90 -H [address] AR Z MA 20 CY -1 2. #5 5 91 MG TA B AL 00 08 09 60 30 00 WA Ac NC 22 -1 -0 .0 00 L- ti AZ 82 1- 8- 00 04 MA ve OL 03 20 20 53 RT AM 15 17 17 15 1 0 84 PH AR MG MA CY TA BL #5 ET 91 OM 45 07 08 30 30 00 WA Ac EP 80 -3 -2 .0 00 L- ti RA 20 0- 5- 00 08 MA ve ZO 88 20 20 84 RT LE 83 17 17 [address] AR MA 20 CY MG #5 91 TA BL ET LI 68 07 08 30 30 00 WA Ac SI 64 -2 -2 .0 00 L- ti NO 50 7- 5- 00 07 MA ve NC 55 20 20 48 RT IL 75 17 17 90 -H [address] AR Z MA 20 CY -1 2. #5 5 91 MG TA B LO 00 07 08 30 30 00 WA Ac RA 78 -2 -1 .0 00 L- ti TA 15 2- 8- 00 08 MA ve DI 07 20 20 83 RT NE 70 17 17 95 1 43 PH 10 AR MA MG CY TA #5 BL 91 ET LO 00 07 08 30 30 00 WA Ac RA 90 -1 -1 .0 00 L- ti TA 45 9- 1- 00 08 MA ve DI 83 20 20 83 RT NE 34 17 17 95 -D 8 44 PH AR 24 MA HR CY TA #5 BL 91 ET AL 00 07 08 60 30 00 [place] Ac NC 22 -1 -0 .0 00 L- ti AZ 82 1- 4- 00 04 MA ve OL 03 20 20 53 RT AM 15 17 17 09 1 0 92 PH AR MG MA CY TA BL #5 ET 91 LI 68 06 30 30 00 WA Ac SI 64 -2 -2 .0 00 L- ti NO 50 6- 1- 00 07 MA ve NC 55 20 20 48 RT IL 75 17 17 90 -H [address] AR Z MA 20 CY -1 2. #5 5 91 MG TA B AL 00 06 07 60 30 00 [place] Ac NC 22 -0 -0 .0 00 L- ti AZ 82 8- 7- 00 04 MA ve OL 03 20 20 53 RT AM 15 17 17 05 1 0 86 PH AR MG MA CY TA BL #5 ET 91 ES 68 05 06 30 30 00 [place] Ac CI 64 -2 -2 .0 00 L- ti TA 50 5- 3- 00 07 MA ve LO 51 20 20 49 RT NC 95 17 17 00 AM 4 44 PH AR 10 MA CY MG #5 TA 91 BL ET LO 00 08 03 29 30 00 WA Ac RA 78 -2 -1 .0 00 L- ti TA 15 1- 6- 00 08 MA ve DI 07 20 20 83 RT NE 70 17 17 95 1 43 PH 10 AR MA MG CY TA #5 BL 91 ET LO 00 05 30 30 00 WA Ac RA 90 -2 -1 .0 00 L- ti TA 45 1- 6- 00 08 MA ve DI 83 20 20 83 RT NE 34 17 17 95 -D 8 44 PH AR 24 MA HR CY TA #5 BL 91 ET LI 54 05 09 27 30 00 WA Ac SI 45 -2 -1 .0 00 L- ti NO 80 2- 6- 00 07 MA ve NC 99 20 20 48 RT IL 21 17 17 90 -H [address] AR Z MA 20 CY -1 2. #5 5 91 MG TA B AL 00 05 60 30 00 [place] Ac NC 22 -0 -0 .0 00 L- ti AZ 82 9- 2- 00 04 MA ve OL 03 20 20 53 RT AM 15 17 17 02 1 0 91 PH AR MG MA CY TA BL #5 ET 91 LO 00 04 30 30 00 [place] Ac RA 78 -2 -2 .0 00 L- ti TA 15 8- 6- 00 08 MA ve DI 07 20 20 83 RT NE 70 17 17 88 1 93 PH 10 AR MA MG CY TA #5 BL 91 ET LI 54 04 30 30 00 [place] Ac SI 45 -2 -2 .0 00 L- ti NO 80 9- 6- 00 07 MA ve NC 99 20 20 45 RT IL 21 17 17 84 -H [address] AR Z MA 20 CY -1 2. #5 5 91 MG TA B FL 60 04 05 16 30 00 WV Ac UT 43 -2 -1 .0 00 L- ti IC 20 4- 9- 00 07 MA ve 26 20 20 48 RT ON 41 17 17 39 E 5 57 PH NC AR OP MA CY 50 #5 MC 91 G SP RA Y AL 00 04 05 60 30 00 [place] Ac NC 22 -1 -0 .0 00 L- ti AZ 82 0- 5- 00 04 MA ve OL 03 20 20 52 RT AM 15 17 17 99 1 0 46 PH AR MG MA CY TA BL #5 ET 91 LO 00 04 05 30 30 00 WA Ac RA 90 -1 -0 .0 00 L- ti TA 45 1- 5- 00 08 MA ve DI 83 20 20 83 RT NE 34 17 17 53 -D 8 31 PH AR 24 MA HR CY TA #5 BL 91 ET ES 68 04 04 30 30 00 WA Ac CI 64 -0 -2 .0 00 L- ti TA 50 4- 8- 00 07 MA ve LO 51 20 20 46 RT NC 95 17 17 74 AM 4 00 PH AR 10 MA CY MG #5 TA 91 BL ET LO 00 04 04 30 30 00 WA Ac RA 78 -0 -2 .0 00 L- ti TA 15 5- 8- 00 08 MA ve DI 07 20 20 83 RT NE 70 17 17 88 1 93 PH 10 AR MA MG CY TA #5 BL 91 ET LI 54 03 04 30 30 00 WA Ac SI 45 -2 -2 .0 00 L- ti NO 80 8- 1- 00 07 MA ve NC 99 20 20 45 RT IL 21 17 17 84 -H [address] AR Z MA 20 CY -1 2. #5 5 91 MG TA B LO 00 03 04 30 30 00 WA Ac RA 90 -0 -0 .0 00 L- ti TA 45 9- 7- 00 08 MA ve DI 83 20 20 83 RT NE 34 17 17 53 -D 8 31 PH AR 24 MA HR CY TA #5 BL 91 ET AL 00 03 04 60 30 00 WA Ac NC 22 -1 -0 .0 00 L- ti AZ 82 0- 7- 00 04 MA ve OL 03 20 20 52 RT AM 15 17 17 96 1 0 05 PH AR MG MA CY TA BL #5 ET 91 ES 68 02 30 30 00 WA Ac CI 64 -2 -2 .0 00 L- ti TA 50 4- 4- 00 07 MA ve LO 51 20 20 46 RT NC 95 17 17 74 AM 4 00 PH AR 10 MA CY MG #5 TA 91 BL ET LI 54 02 03 30 30 00 WA Ac SI 45 -2 -2 .0 00 L- ti NO 80 7- 4- 00 07 MA ve NC 99 20 20 45 RT IL 21 17 17 84 -H [address] AR Z MA 20 CY -1 2. #5 5 91 MG TA B AL 00 02 03 60 30 00 WA Ac NC 22 -1 -1 .0 00 L- ti [...] #5 BL 91 ET LI 54 01 02 30 30 00 WA Ac SI 45 -3 -2 .0 00 L- ti NO 80 0- 4- 00 07 MA ve NC 99 20 20 45 RT IL 21 17 17 84 -H [address] AR Z MA 20 CY -1 2. #5 5 91 MG TA B ES 65 04 01 30 30 00 WA Ac CI 86 -2 -2 .0 00 L- ti TA 20 7- 4- 00 07 MA ve LO 37 20 20 46 RT NC 40 17 17 74 AM 1 00 [...] 17 17 48 E 5 77 PH NC AR OP MA CY 50 #5 MC [...] #5 BL 91 ET ME 68 01 02 30 30 00 WA Ac TF 38 -1 -0 .0 00 L- ti OR 20 1- 3- 00 07 MA ve MS 75 20 20 46 RT N 81 17 17 39 HC 0 21 PH L AR 50 MA 0 CY MG #5 TA 91 BL ET AL 00 01 02 60 30 00 WA Ac NC 22 -1 -0 .0 00 L- ti AZ 82 1- 3- 00 04 MA ve OL 03 20 20 52 RT AM 15 17 17 90 1 0 00 PH AR MG MA CY TA BL #5 ET 91 LI 54 12 01 30 30 00 WA Ac SI 45 -2 -2 .0 00 L- ti NO 80 4- 7- 00 07 MA ve NC 99 20 20 45 RT IL 21 16 17 84 -H [address] AR Z MA 20 CY -1 2. #5 5 91 MG TA B LO 00 12 01 30 30 00 WA Ac RA 90 -2 -2 .0 00 L- ti TA 45 7- 7- 00 08 MA ve DI 83 20 20 83 RT NE 34 16 17 53 -D 8 31 PH AR 24 MA HR CY TA #5 BL 91 ET AL 00 12 01 60 30 00 WA Ac NC 22 -1 -1 .0 00 L- ti AZ 82 4- 3- 00 04 MA ve OL 03 20 20 52 RT AM 15 16 17 87 1 0 47 PH AR MG MA CY TA BL #5 ET 91 Procedures Procedure DOS Code Location Performer Comment IAADIADOO [address] [facility] [address] INFLUENZA INTERNAL MED COMPREHEN 38859 COMBINED COMBINED SIVE 7 PHYSICIAN PHYSICIAN [place] [address] COMBINED COMBINED THYROID 7 PHYSICIAN PHYSICIAN STIMULATI S [place] S [place] NG HORMONE TSH BLOOD 00132 COMBINED COMBINED COUNT 7 PHYSICIAN PHYSICIAN COMPLETE S LA S LA AUTO&AUTO DIFRNTL WBC LIPID 51360 COMBINED COMBINED PANEL 7 PHYSICIAN PHYSICIAN S LA S LA URNLS DIP 97369 [facility] STICK/TAB INC INC LET REAGENT AUTO MICROSCOP Y COMPREHEN 27066 COMBINED COMBINED SIVE 7 PHYSICIAN PHYSICIAN METABOLIC S LA S LA PANEL LIPID 18707 COMBINED COMBINED PANEL 7 PHYSICIAN PHYSICIAN S LA S LA IADNA-DNA 21790 [facility] /RNA GI 6 [facility] PTHGN INC INC MULTIPLEX PROBE TQ 12-25 RADEX ABD 00683 [facility] COMPL 6 [facility] AQT ABD INC INC W/S/E/D VIEWS 1 VIEW CH RADIOLOGI 48246 [facility] C EXAM 6 MEDICAL CHEST 2 IMAGING VIEWS ASS FRONTAL&L ATERAL IADNA NOS 00496 [facility] 5 [facility] AMPLIFIED INC INC PROBE TQ EACH ORGANISM INF AGENT 48422 [facility] DET 5 [facility] NUCLEIC INC INC ACID CLOSTRIDI UM AMP PROBE THROMBOPL 98247 [facility] ASTIN 5 [facility] TIME INC INC PARTIAL PLASMA/WH OLE BLOOD COMPREHEN 81772 [facility] SIVE 5 [facility] METABOLIC INC INC PANEL BLOOD 76169 [facility] COUNT 5 [facility] COMPLETE INC INC AUTO&AUTO DIFRNTL WBC BLOOD 58406 [facility] OCCULT 5 [facility] PEROXIDAS INC INC E ACTV QUAL FECES 1-3 SPEC PROTHROMB 12604 [facility] IN TIME 5 [facility] INC INC THER 44799 [facility] PROPH/DX 5 [facility] NJX IV INC INC PUSH SINGLE/1S T SBST/DRUG Encounters Encounter Start End Date Code Location Performer Type Date OFFICE 31153 [facility] 7 7 [facility] VISIT INTERNAL 15 MED MINUTES OFFICE 07135 [facility] 7 7 [facility] VISIT INTERNAL 25 MED MINUTES EMERGENCY 42923 VAISHALI TINEO [address] [facility] T VISIT MODERATE SEVERITY [facility]OSPITAL [facility] 7 7 [facility] 52454 [facility] 7 7 [facility] T VISIT LIMITED/M INOR PROB EMERGENCY 76266 [facility] DEPT [address] [facility] HIGH SEVERITY& THREAT COUNT [facility]CLUDES [facility] A[facility] - 6 6 [facility] OUTPATIEN [facility] T EMERGENCY 67162 VIASHALI CALDERON 6 [address] [facility] T VISIT MODERATE SEVERITY OFFICE 41786 [facility] 5 5 [facility] T VISIT INTERNAL 15 MED MINUTES OFFICE 77778 [facility] 5 5 [facility] VISIT INTERNAL 25 MED MINUTES OFFICE 67129 [facility] 5 5 [facility] T VISIT INTERNAL 15 MED MINUTES OFFICE 51702 [facility] OUTPATI[facility] 5 5 PHYSICIAN CAM T [facility] MINUTES [facility]OSP[facility] - 5 5 [facility] T OFFICE 94492 [facility] 5 5 [facility] T VISIT INTERNAL 15 MED MINUTES [facility] - 5 5 [facility] T EMERGENCY 99825 [facility] 5 5 [facility] T VISIT MODERATE SEVERITY EMERGENCY 16502 [facility] 5 5 [facility] T VISIT HIGH/URGE NT SEVERITY OFFICE 87744 [facility] 5 5 [facility] T VISIT INTERNAL 15 MED MINUTES OFFICE 98074 [facility] OUT[facility]IEN 4 4 ANG ANG T VISIT 10 MINUTES
--- OUTSIDE RECORDS SUMMARY | 2017-01-11 00:51 | External Medical Summary Rpt | CCD ---
Author Author , BONIFACIO VALDOVINOS Address Unknown Phone [email or web address] Immunization Name Date Rout CVX Reac Dose Comm Prov Is Faci e tion ent ider Refu lity Give sed n Tdap 10-1 115 999 Hist H149 No H149 , 0-20 oric Adso 12 al rbed Info rmat ion - Sour ce Unsp ecif ied
--- OUTSIDE RECORDS SUMMARY | 2017-01-11 00:51 | External Medical Summary Rpt | CCD ---
Author Author , BONIFACIO Thakur BONIFACIO Address Unknown Phone [email or web address] Providers Care Coding Educator Name Role Phone BESSON, BESSON Unavailable Unavailable BESSON RICHELLE, BESSON Unavailable Unavailable RICHELLE MALDONADO, MALDONADO Unavailable [facility]available [facility] Unavailable Unavailable [place], [facility] PANKAJ, PANKAJ Unavailable Unavailable PANKAJ ALY, Unavailable Unavailable PANKAJ ALY RIVKA, RIVKA Unavailable Unavailable [facility] Un[facility] Un[facility], [facility], Unavailable Unavailable [facility] Unavailable Unavailable [facility], [facility] Unavailable Unavailable [facility], [facility], Unavailable Unavailable PLL[facility], [facility] RENUSCH KASSIDY, RENUSCH Unavailable Unavailable [facility], Unavailable Unavailable [facility] SCIFRES ANG, SCIFRES Unavailable Unavailable ANG SCIFRES ANG, SCIFRES Unavailable Unavailable ANG Purpose Continuity of Care Document - 10-21-2013 through 2016 Problems Code Diagnosis DOS Provider Status R509 FEVER 11-07-2016 [facility] UNSPECIFIED [facility] E785 HYPERLIPIDE 08-16-2016 [facility] LIDIA [facility] UNSPECIFIED INTERNAL MED G4709 OTHER 08-16-2016 [facility] INSOMNIA [facility] I10 ESSENTIAL 08-16-2016 [facility] PRIMARY [facility] HYPERTENSIO INTERNAL N MED J3089 OTHER 08-16-2016 [facility] ALLERGIC [facility] RHINITIS INTERNAL MED R3915 URGENCY OF 04-25-2016 [facility] [id number] ADVERSE 04-25-2016 [facility] SEROTONIN NRI INIT ENC [id number] ADVERS EFF 04-25-2016 [facility] ANTIEMETIC RX INIT ENC R0609 OTHER FORMS 01-25-2016 [facility] R1084 GENERALIZED 11-20-2015 [facility] R109 UNSPECIFIED 11-20-2015 [facility] R197 DIARRHEA 11-20-2015 [facility]PEC[facility] J0190 ACUTE 11-13-2015 [facility] SINUSITIS PHYSICIANS, UNSPECIFIED [facility] R0602 SHORTNESS 09-30-2015 [facility] 4019 UNSPECIFIED 12-23-2014 [facility] HYPERTENSIO INTERNAL N MED 2724 OTHER AND 12-09-2014 [facility] UNSPECIFIED [facility] INTERNAL HYPERLIPIDE MED LIDIA 85805 OTHER 12-09-2014 [facility] MED 23631 ESOPHAGEAL 09-05-2014 [facility] REFLUX [facility] INTERNAL MED 5780 HEMATEMESIS 06-09-2014 [facility] 7871 HEARTBURN 06-09-2014 [facility] 74663 DIARRHEA 06-01-2014 [facility] INTERNAL MED 14646 ACUTE 05-31-2014 [facility] HEMORRHAGE 82471 OTHER 10-21-2013 SCIFRES ANG CHRONIC ALLERGIC CONJUNCTIVI TIS Medications Na ND Rx Da Fi Fi Am Da Di Ph RX Ph St me C No te ll ll ou ys ag ar # ys at rm s nt no ma ic us Or Da si cy ia de te s n re d AL 00 09 10 60 30 00 ME Ac NE 22 -1 -0 .0 00 L- ti AZ 82 1- 6- 00 04 MA ve OL 03 20 20 53 RT AM 15 17 17 20 1 0 56 PH AR MG MA CY TA BL #5 ET 91 OM 45 09 12 28 30 00 ME Ac EP 80 -0 -2 .0 00 L- ti RA 20 2- 9- 00 08 MA ve ZO 88 20 20 84 RT LE 83 17 [address] AR MA 20 CY MG #5 91 TA BL ET LO 00 12 07 30 30 00 ME Ac RA 78 -0 -2 .0 00 [...] ET LI 68 08 30 30 00 ME Ac SI 64 -2 -2 .0 00 L- ti NO 50 7- 2- 00 07 MA ve NE 55 20 20 48 RT [place] 75 17 17 90 -H [address] AR Z MA 20 CY -1 2. #5 5 91 MG TA B AL 00 08 09 60 30 00 WA Ac NE 22 -1 -0 .0 00 L- ti [...] 50 7- 5- 00 07 MA ve NE 55 20 20 48 RT IL 75 [...] AL 00 07 08 60 30 00 ME Ac NE 22 -1 -0 .0 00 L- ti AZ 82 1- 4- 00 04 MA ve OL 03 20 20 53 RT AM 15 17 17 09 1 0 92 PH AR MG MA CY TA BL #5 ET 91 LI 68 06 30 30 00 WA Ac SI 64 -2 -2 .0 00 L- ti NO 50 6- 1- 00 07 MA ve NE 55 20 20 48 RT IL 75 17 17 90 -H [address] AR Z MA 20 CY -1 2. #5 5 91 MG TA B AL 00 06 07 60 30 00 WA Ac NE 22 -0 -0 .0 00 L- ti [...] ve LO 51 20 20 49 RT NE 95 17 17 00 AM 4 44 [...] 80 2- 6- 00 07 MA ve NE 99 20 20 48 RT IL 21 17 17 90 -H [address] AR Z MA 20 CY -1 2. #5 5 91 MG TA B AL 00 05 60 30 00 ME Ac NE 22 -0 -0 .0 00 L- ti AZ 82 9- 2- 00 04 MA ve OL 03 20 20 53 RT AM 15 17 17 02 1 0 91 PH AR MG MA CY TA BL #5 ET 91 LO 00 04 30 30 00 ME Ac RA 78 -2 -2 .0 00 L- ti TA 15 8- 6- 00 08 MA ve DI 07 20 20 83 RT NE 70 17 17 88 1 93 PH 10 AR MA MG CY TA #5 BL 91 ET LI 54 04 30 30 00 ME Ac SI 45 -2 -2 .0 00 L- ti NO 80 9- 6- 00 07 MA ve NE 99 20 20 45 RT IL 21 17 17 84 -H [address] AR Z MA 20 CY -1 2. #5 5 91 MG TA B FL 60 04 05 16 30 00 ME Ac UT 43 -2 -1 .0 00 L- ti IC 20 4- 9- 00 07 MA ve 26 20 20 48 RT ON 41 17 17 39 E 5 57 PH NE AR OP MA CY 50 #5 MC 91 G SP RA Y AL 00 04 05 60 30 00 ME Ac NE 22 -1 -0 .0 00 L- ti [...] ve LO 51 20 20 46 RT NE 95 17 17 74 AM 4 00 [...] 80 8- 1- 00 07 MA ve NE 99 20 20 45 RT IL 21 [...] 03 04 60 30 00 WA Ac NE 22 -1 -0 .0 00 L- ti [...] ve LO 51 20 20 46 RT NE 95 17 17 74 AM 4 00 PH AR 10 MA CY MG #5 TA 91 BL ET LI 54 02 03 30 30 00 WA Ac SI 45 -2 -2 .0 00 L- ti NO 80 7- 4- 00 07 MA ve NE 99 20 20 45 RT IL 21 17 17 84 -H [address] AR Z MA 20 CY -1 2. #5 5 91 MG TA B AL 00 02 03 60 30 00 WA Ac NE 22 -1 -1 .0 00 L- ti [...] 80 0- 4- 00 07 MA ve NE 99 20 20 45 RT IL 21 17 17 84 -H [address] AR Z MA 20 CY -1 2. #5 5 91 MG TA B ES 65 04 01 30 30 00 WA Ac CI 86 -2 -2 .0 00 L- ti TA 20 7- 4- 00 07 MA ve LO 37 20 20 46 RT NE 40 17 17 74 AM 1 00 [...] 17 17 48 E 5 77 PH NE AR OP MA CY 50 #5 MC [...] 20 1- 3- 00 07 MA ve RI 75 20 20 46 RT N 81 17 17 39 HC 0 21 PH L AR 50 MA 0 CY MG #5 TA 91 BL ET AL 00 01 02 60 30 00 WA Ac NE 22 -1 -0 .0 00 L- ti [...] 80 4- 7- 00 07 MA ve NE 99 20 20 45 RT IL 21 [...] 12 01 60 30 00 WA Ac NE 22 -1 -1 .0 00 L- ti AZ 82 4- 3- 00 04 MA ve OL 03 20 20 52 RT AM 15 16 17 87 1 0 47 PH AR MG MA CY TA BL #5 ET 91 Procedures Procedure DOS Code Location Performer Comment IAADIADOO [address] [facility] [address] INFLUENZA INTERNAL MED COMPREHEN 18214 COMBINED COMBINED SIVE 7 PHYSICIAN PHYSICIAN [place] [address] COMBINED COMBINED THYROID 7 PHYSICIAN PHYSICIAN STIMULATI [place] NG HORMONE TSH BLOOD 22357 COMBINED COMBINED COUNT 7 PHYSICIAN PHYSICIAN COMPLETE S LA S LA AUTO&AUTO DIFRNTL WBC LIPID 45467 COMBINED COMBINED PANEL 7 PHYSICIAN PHYSICIAN S LA S LA URNLS DIP 28001 [facility] STICK/TAB INC INC LET REAGENT AUTO MICROSCOP Y COMPREHEN 16159 COMBINED COMBINED SIVE 7 PHYSICIAN PHYSICIAN METABOLIC S LA S LA PANEL LIPID 56432 COMBINED COMBINED PANEL 7 PHYSICIAN PHYSICIAN S LA S LA IADNA-DNA 34387 [facility] /RNA GI 6 [facility] PTHGN INC INC MULTIPLEX PROBE TQ 12-25 RADEX ABD 87226 [facility] COMPL 6 [facility] AQT ABD INC INC W/S/E/D VIEWS 1 VIEW CH RADIOLOGI 75261 [facility] C EXAM 6 MEDICAL CHEST 2 IMAGING VIEWS ASS FRONTAL&L ATERAL IADNA NOS 84858 [facility] 5 [facility] AMPLIFIED INC INC PROBE TQ EACH ORGANISM INF AGENT 05855 [facility] DET 5 [facility] [place] [place] [facility] NUCLEIC INC INC ACID CLOSTRIDI UM AMP PROBE THROMBOPL 15137 [facility] ASTIN 5 [facility] [place] [place] [facility] TIME INC INC PARTIAL PLASMA/WH OLE BLOOD COMPREHEN 97253 [facility] SIVE 5 [facility] METABOLIC INC INC PANEL BLOOD 10697 [facility] COUNT 5 [facility] [place] [place] [facility] COMPLETE INC INC AUTO&AUTO DIFRNTL WBC BLOOD 01120 [facility] OCCULT 5 [facility] [place] [place] [facility] PEROXIDAS INC INC E ACTV QUAL FECES 1-3 SPEC PROTHROMB 99451 [facility] IN TIME 5 [facility] [place] [place] [facility] INC INC THER 66064 [facility] PROPH/DX 5 [facility] [place] [place] [facility] NJX IV INC INC PUSH SINGLE/1S T SBST/DRUG Encounters Encounter Start End Date Code Location Performer Type Date OFFICE 04000 [facility] PANKAJ OUTPATIEN 7 7 [facility] VISIT INTERNAL 15 MED MINUTES OFFICE 77395 [facility] BESSON OUTPATIEN 7 7 [facility] VISIT INTERNAL 25 MED MINUTES EMERGENCY 15229 [facility] TINEO 7 7 PHYSICIAN DEPARTMEN [facility] T VISIT MODERATE [facility]VERITY HOSPITAL [facility] - 7 7 [facility] EMERGENCY 14369 [facility] [address] [facility] T VISIT LIMITED/M INOR PROB EMERGENCY 01767 [facility] DEPT 6 6 PHYSICIAN KASSIDY VISIT [facility] HIGH [facility]VERITY& THREAT [facility] - 6 6 [facility] [place] [place] [facility] OUTPATIEN [facility] T EMERGENCY 33632 [facility] CALDERON 6 6 PHYSICIAN KASSIDY DEPARTMEN [facility] T VISIT MODERATE SEVERITY OFFICE 42139 [facility] BESSON OUTPATIEN 5 5 [facility] T VISIT INTERNAL 15 MED MINUTES OFFICE 63124 [facility] OUTPATIEN 5 5 [facility] T VISIT INTERNAL 25 MED MINUTES OFFICE 74515 [facility] OUTPATIEN 5 5 [facility] T VISIT INTERNAL 15 MED MINUTES OFFICE 85608 [facility] SCHULSTAD OUTPATIEN 5 5 PHYSICIAN CAM T NEW 45 S GROUP MINUTES HOSPITAL [facility] - 5 5 [facility] OUTPATIEN INC T OFFICE 00294 [facility] BESSON OUTPATIEN 5 5 [facility] T VISIT INTERNAL 15 MED MINUTES HOSPITAL [facility] - 5 5 [facility] OUTPATIEN INC T EMERGENCY 33053 [facility] 5 5 [facility] DEPARTMEN INC T VISIT MODERATE SEVERITY EMERGENCY 89139 [facility] 5 5 [facility] DEPARTMEN INC T VISIT HIGH/URGE NT SEVERITY OFFICE 75440 [facility] PANKAJ OUTPATIEN 5 5 [facility] T VISIT INTERNAL 15 MED MINUTES OFFICE 67489 [facility] SC[facility] OUTPATIEN 4 4 ANG ANG T VISIT 10 MINUTES
--- OUTSIDE RECORDS SUMMARY | 2017-01-11 00:51 | External Medical Summary Rpt | CCD ---
Author Author , BONIFACIO VALDOVINOS Address Unknown Phone [email or web address] Immunization Name Date Rout CVX Reac Dose Comm Prov Is Faci e tion ent ider Refu lity Give sed n Tdap 10-1 115 999 Hist H149 No H149 , 0-20 oric Adso 12 al rbed Info rmat ion - Sour ce Unsp ecif ied
--- OUTSIDE RECORDS SUMMARY | 2017-01-11 00:52 | External Medical Summary Rpt ---
Author Author BONIFACIO Vazquez, [employer] Organization [employer] Address Unknown Phone Unavailable
== END 2017-01-06 03:38 | disposition home or self-care (01) ==
LOC: ER 01:33
PROVIDERS: Emergency Medicine
DX: R10.9 Unspecified abdominal pain (principal); I10 Essential (primary) hypertension; F41.8 Other specified anxiety disorders